=== PATIENT | male | born 1995 | race Caucasian/White ===

== ENCOUNTER 2023-05-08 00:07 | Emergency (ER) | payer OTHER ==
[~2023-05-08] VITALS: Ht 180.3 cm; Wt 78.9 kg
[~2023-05-08 00:07] MED LIST: AMOX500 PO; CODACE30 PO; RXCODACET PO
[2023-05-08] MEDS ORDERED: Cleocin HCl300 MG PO (00:16)
[2023-05-08] MEDS ORDERED: IBU600 MG PO (00:16)
[2023-05-08] MEDS ORDERED: PERIDEX15 ML MM (00:16)
== END 2023-05-08 00:32 | disposition home or self-care (01) ==
LOC: ER 00:07
DX: K02.9 Dental caries, unspecified (principal); Z88.1 Allergy status to other antibiotic agents
CPT/HCPCS: 99282; A9270

== ENCOUNTER 2023-07-31 01:16 | Emergency (ER) | payer OTHER ==
[~2023-07-31] VITALS: Ht 180.3 cm; Wt 78.9 kg
[~2023-07-31 01:16] MED LIST changes: +Cleocin HCl300 MG PO; +IBU600 MG PO; +PERIDEX15 ML MM
[2023-07-31] MEDS ORDERED: SULTRIDS PO (03:24)
[2023-07-31] MEDS ORDERED: Trimethoprim/Sulfamethoxazole DS Tab PO ONE (03:25)
== END 2023-07-31 03:32 | disposition home or self-care (01) ==
LOC: ER 01:16
DX: L03.115 Cellulitis of right lower limb (principal); Z88.0 Allergy status to penicillin
CPT/HCPCS: 99283; A9270